=== PATIENT | female | born 1950 | race Caucasian/White ===

== ENCOUNTER 2023-05-05 14:34 | Outpatient (CLI) | payer MEDICARE, BC | END 2023-05-05 14:35 | disposition home or self-care (01) | LOC: BICMAMMO 14:34 | PROVIDERS: ATTEND Family Medicine | DX: Z12.31 Encounter for screening mammogram for malignant neoplasm of breast (principal); Z80.3 Family history of malignant neoplasm of breast; Z87.898 Personal history of other specified conditions | CPT/HCPCS: 77063; 77067 ==